=== PATIENT | female | born 1990 | race American Indian/Alaskan Native ===

== ENCOUNTER 2018-02-09 16:35 | Emergency (ER) | payer OTHER ==
[2018-02-09 16:45] VITALS: BP 129/89; PULSE 87; RESP 20; TEMP 98.5; O2SAT 99
--- NOTE | 2018-02-09 20:20 | C.PDOC ---
History Of Present Illness 27 y/o female presents to the ED complaining of pain to left lower jaw radiating toward the left ear for the past 3 days. Patient presents with her counselor, and is in rehab currently for drug dependency. States she has been unable to leave the rehab center in order to find a dentist. Denies any fevers or chills. Time Seen by Provider: 02/09/18 18:49 Chief Complaint (Nursing): Dental Pain History Per: Patient History/Exam Limitations: no limitations Onset/Duration Of Symptoms: Days (x3) Current Symptoms Are (Timing): Still Present Past Medical History Reviewed: Historical Data, Nursing Documentation, Vital Signs Vital Signs: Last Vital Signs Temp 98.5 F 02/09/18 16:41 Pulse 87 02/09/18 16:41 Resp 20 02/09/18 16:41 BP 129/89 02/09/18 16:41 Pulse Ox 99 02/09/18 21:17 - Medical History Other PMH: Drug dependence Family History: States: No Known Family Hx - Social History Hx Alcohol Use: No Hx Substance Use: Yes (Ex user) - Immunization History Hx Tetanus Toxoid Vaccination: No Hx Influenza Vaccination: No Hx Pneumococcal Vaccination: No Review Of Systems Except As Marked, All Systems Reviewed And Found Negative. Constitutional: Negative for: Fever, Chills ENT: Positive for: Other (left lower jaw pain radiating across face) Physical Exam - Physical Exam Appears: Non-toxic, No Acute Distress Skin: Normal Color, Warm, Dry Head: Atraumatic, Normacephalic Eye(s): bilateral: Normal Inspection, PERRL, EOMI Ear(s): Bilateral: Normal Nose: Normal Oral Mucosa: Moist Teeth: Caries (left lower 2nd molar w/ large dental annmarie) Gingiva: Normal Appearing, No Swelling, No Abscess Neck: Normal ROM, Trachea Midline, Supple Neurological/Psych: Oriented x3, Normal Speech ED Course And Treatment O2 Sat by Pulse Oximetry: 99 (RA) Pulse Ox Interpretation: Normal Progress Note: Given Toradol IM and initial Penicillin dose in the ED. Patient is stable for discharge home. Advised to f/u with dentist without fail Disposition Counseled Patient/Family Regarding: Diagnosis, Need For Followup, Rx Given - Disposition Disposition: HOME/ ROUTINE Disposition Time: 20:18 Condition: STABLE Additional Instructions: Follow up with [facility]ist [facility]. Return to ED if feel worse. 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 - Scribe Statement The provider has reviewed the documentation as recorded by the Scribe (Anastasia Varner) All medical record entries made by the Scribe were at my direction and personally dictated by me. I have reviewed the chart and agree that the record accurately reflects my personal performance of the history, physical exam, medical decision making, and the department course for this patient. I have also personally directed, reviewed, and agree with the discharge instructions and disposition.
== END 2018-02-09 20:24 | disposition home or self-care (01) ==
LOC: C.ER 16:35
DX: K02.9 Dental caries, unspecified (principal)
CPT/HCPCS: 96372; 99283; J1885